=== PATIENT | male | born 1960 | race Caucasian/White ===

== ENCOUNTER 2022-11-15 13:48 | Emergency (ER) | payer OTHER, SELFPAY ==
[2022-11-15] VITALS (8 sets, daily range): BP systolic 122–159; BP diastolic 66–85; PULSE 60–73; RESP 15–22; TEMP 35.9; O2SAT 94–98; BMI 28.7
[2022-11-15] MEDS: ONDANSETRON 4 MG/2 ML INJ IV (14:00)
[2022-11-15] MEDS: KETOROLAC 30 MG/ML VIAL 15 MG IV (14:00)
[2022-11-15 14:27] LABS: Add Manual Diff / Slide Review NO; Basophils Absolute Auto 100 /uL (0-100); Basophils Percent Auto 1.1 % (0-2); Eosinophils Absolute Auto 100 /uL (0-450); Eosinophils Percent Auto 1.7 % (2-4); Hematocrit 42.1 % (41-53); Hemoglobin 14.1 g/dL (13.5-17.5); Lymphocytes Absolute Auto 3300 /uL (1100-4500); Lymphocytes Percent Auto 40.3 % (25-40); Mean Corpuscular HGB Conc 33.6 % (30-36); Mean Corpuscular Hemoglobin 30.4 PG (26-34); Mean Corpuscular Volume 90.3 fL (80-100); Monocytes Absolute Auto 1000 /uL (0-900); Monocytes Percent Auto 11.8 % (3-14); Neutrophils Absolute Auto 3700 /uL (1500-7000); Neutrophils Percent Auto 45.1 % (50-75); Platelet Count 205 X10^3/uL (150-400); Red Blood Cell Count 4.66 X10^6/uL (4.5-5.9); Red Cell Distribution Width 13.3 % (11.6-14.8); White Blood Cell Count 8.2 X10^3/uL (4.5-11.0)
[2022-11-15 14:34] LABS: Alanine Aminotransferase 31 IU/L (<50); Albumin 4.2 g/dL (3.5-5.0); Albumin Globulin Ratio 1.3 (1.0-2.8); Alkaline Phosphatase 60 U/L (38-126); Aspartate Aminotransferase 32 IU/L (17-59); Bilirubin Total 0.9 mg/dL (0.2-1.3); Blood Urea Nitrogen 17 mg/dL (9-20); Calcium 8.7 mg/dL (8.4-10.2); Carbon Dioxide 23 mmol/L (22-32); Chloride 101 mmol/L (98-107); Estimated Glomerular Filt Rate > 60 mL/min (>60); Globulin 3.3 g/dL (1.7-4.1); Glucose 196 mg/dL (80-110); HEMOLYSIS 22 (0-50); Lipase 101 U/L (23-300); Potassium 4.2 mmol/L (3.4-5.1); Sodium 137 mmol/L (137-145); Total Protein 7.5 g/dL (6.3-8.2)
--- NOTE | 2022-11-15 15:44 | DI.CT.S_ITS ---
PROCEDURE: CT KIDNEY URETER BLADDER (KUB) INDICATIONS: flank/back pain, urgency sensation TECHNIQUE: Axial sections were acquired from the lung bases to the pubic symphysis. Coronal and sagittal reformats were performed. For radiation dose reduction, the following was used: automated exposure control, adjustment of mA and/or kV according to patient size. COMPARISON: None. FINDINGS: Image quality: Excellent. Lung bases: Unremarkable. Heart: No significant findings. URINARY: Right Kidney: No stones. Mild hydronephrosis. Minimal perinephric stranding. Right Ureter: Mildly dilated down to the ureterovesical junction where a 3 mm stone obstructs the distal ureter. Left Kidney: No stones or hydronephrosis. Left Ureter: No hydroureter. Bladder: Normal wall thickness. No stones. ABDOMEN: Liver: Diffuse hepatic steatosis.. Gallbladder: Contracted, within normal limits Biliary ducts: Unremarkable. Pancreas: Unremarkable. Spleen: Unremarkable. Adrenal Glands: Unremarkable. Stomach and Bowel: Stomach, small bowel loops, and colon are unremarkable. Peritoneum: No abnormal intraperitoneal fluid. No free air. Ventral Wall: No hernia. Abdominal Nodes: No enlarged retroperitoneal or mesenteric lymph nodes. Vessels: Aorta and inferior vena cava are normal in size. PELVIS: Pelvic Organs: Unremarkable. Pelvic Nodes: Unremarkable. Miscellaneous: No inguinal hernias are seen. Bones: Lumbar degenerative change. No lytic or blastic bony lesions. No compression fractures. IMPRESSION: 1. A 3 mm stone obstructs the right ureter at the right ureterovesical junction resulting in mild right hydronephrosis. 2. Diffuse hepatic steatosis. 3. Small fat containing right inguinal hernia. Dictated by: Todd Bedoya M.D. on 11/15/2022 at 16:19 Approved by: Todd Bedoya M.D. on 11/15/2022 at 16:22
[2022-11-15] MEDS: SODIUM CHLORIDE 0.9% 1,000 ML 1000 ML IV (15:50)
[2022-11-15 17:07] LABS: Bacteria Urine None Seen; Culture Indicated Urine Cult Not Indicated; RBC Urine 1-5/HPF (0-5/HPF); Squamous Epithelial Cell Urine 0-1 /HPF (0-5/HPF); WBC Urine 0-1/HPF (0-5/HPF)
[2022-11-15] MEDS: TAMSULOSIN 0.4 MG CAPSULE PO (17:19)
[2022-11-15] MEDS: HYDROMORPHONE 0.5 MG INJ IV (17:19)
[2022-11-15] MEDS: HYDROCODONE/ACET 5/325 PREPACK 1 BOTTLE MISC (17:20)
[2022-11-15] MEDS: ONDANSETRON 4 MG ODT SL (17:20)
--- NOTE | 2022-11-15 17:28 | ED_ITS ---
HPI - Male Genitourinary <ROSALINDA Swanson - Last Filed: 11/15/22 17:33> General Chief complaint: Urogenital-Male Stated complaint: kidney stones Time Seen by Provider: 11/15/22 14:36 Source: patient Mode of arrival: Ambulatory History of Present Illness HPI Narrative: This is a 62-year-old male who presents to the emergency department with right- sided flank pain and urinary urgency. Denies fever, chills, states that his pain started today, denies vomiting but endorses nausea, denies any upper respiratory infection. Denies blood in his urine. Related Data Previous Rx's Medication Instructions Recorded hydrocodone 5 mg-acetaminophen 325 1 tab PO DAILY PRN pain #10 tabs 11/15/22 mg tablet ondansetron 4 mg disintegrating 4 mg PO Q8H PRN nausea and 11/15/22 tablet vomiting #10 tabs tamsulosin 0.4 mg capsule 0.4 mg PO DAILY 10 days #10 caps 11/15/22 Allergies Allergy/AdvReac Type Severity Reaction Status Date / Time No Known Drug Allergies Allergy Verified 11/15/22 13:52 Review of Systems <ROSALINDA Swanson - Last Filed: 11/15/22 17:33> Review of Systems ROS Unobtainable: All systems reviewed & are unremarkable except as noted in HPI and below Patient History <ROSALINDA Swanson - Last Filed: 11/15/22 17:33> Social History Smoking Status: Unknown if ever smoked Smoking Status: Unknown if ever smoked alcohol intake frequency: holidays/special occasions only Substance Use Type: does not use Exam <ROSALINDA Swanson - Last Filed: 11/15/22 17:33> Narrative Exam Narrative: Reviewed vitals signs and nursing notes. General: cooperative, comfortable, in no acute distress, well groomed HEENT: symmetrical facial expressions, moist mucous membranes Cardiovascular: regular rate and rhythm, no peripheral edema, warm extremities Respiratory: normal effort, able to speak in complete sentences, without w heezing, stridor, or abnormal breath sounds. No retractions or tachypnea. GI: abdomen soft, nontender to palpation, nondistended, without masses, rebound tenderness or exquisite tenderness with exam. MSK: moves all extremities, neurovascularly intact, no weakness, normal tone, right CVAT tenderness Skin: brisk capillary refill, without pallor or erythema Neuro: normal speech and cognition, A&O x3, ambulatory, clear speech Psych: mental status is grossly normal, congruent mood, normal affect, pleasant and cooperative Initial Vital Signs Initial Vital Signs: Vital Signs Temperature 96.7 F L 11/15/22 13:52 Pulse Rate 60 11/15/22 13:52 Respiratory Rate 20 11/15/22 13:52 Blood Pressure 122/80 11/15/22 13:52 Pulse Oximetry 94 11/15/22 13:52 Oxygen Delivery Method 11/15/22 13:52 <Sahra Caldwell DO - Last Filed: 11/21/22 19:10> Initial Vital Signs Initial Vital Signs: Vital Signs Temperature 96.7 F L 11/15/22 13:52 Pulse Rate 60 11/15/22 13:52 Respiratory Rate 20 11/15/22 13:52 Blood Pressure 122/80 11/15/22 13:52 Pulse Oximetry 94 11/15/22 13:52 Oxygen Delivery Method 11/15/22 13:52 Course <ROSALINDA Swanson - Last Filed: 11/15/22 17:33> Orders Ordered: Discontinued Medications Hydrocodone Bitart/Acetaminophen (Hydrocodone/Acet 5/325 Prepack) 1 bottle MISC SEEINSTR ONE Stop: 11/15/22 17:18 Last Admin: 11/15/22 17:20 Dose: 1 bottle Documented By: ROBSON Hydromorphone HCl (Hydromorphone 0.5 Mg Inj) 0.5 mg IV NOW ONE Stop: 11/15/22 17:07 Last Admin: 11/15/22 17:19 Dose: 0.5 mg Documented By: ROBSON Sodium Chloride (Normal Saline 0.9%) 1,000 mls @ 1,000 mls/hr IV BOLUS ONE Stop: 11/15/22 16:43 Last Infusion: 11/15/22 16:54 Dose: 0 mls/hr Documented By: Admin: 11/15/22 15:50 Dose: 1,000 mls/hr Documented By: ROBSON Ketorolac Tromethamine (Ketorolac 30 Mg/Ml Vial) 15 mg IV NOW ONE Stop: 11/15/22 13:57 Last Admin: 11/15/22 14:00 Dose: 15 mg Documented By: ROBSON(2) Ondansetron HCl (Ondansetron 4 Mg/2 Ml Inj) 4 mg IV NOW PRN PRN Reason: Nausea And Vomiting Last Admin: 11/15/22 14:00 Dose: 4 mg Documented By: ROBSON(2) Ondansetron HCl (Ondansetron 4 Mg Odt) 4 mg SL NOW ONE Stop: 11/15/22 17:19 Last Admin: 11/15/22 17:20 Dose: 4 mg Documented By: ROBSON Tamsulosin HCl (Tamsulosin 0.4 Mg Capsule) 0.4 mg PO NOW ONE Stop: 11/15/22 17:07 Last Admin: 11/15/22 17:19 Dose: 0.4 mg Documented By: ROBSON Vital Signs Vital signs: Vital Signs - 8 hr 11/15/22 13:52 11/15/22 15:07 11/15/22 15:10 Temperature 96.7 F L Pulse Rate 60 65 62 Respiratory Rate 20 15 Blood Pressure 122/80 Pulse Oximetry 94 96 96 Oxygen Delivery Method Room Air 11/15/22 15:10 11/15/22 15:30 11/15/22 15:30 Temperature Pulse Rate 63 Respiratory Rate 16 Blood Pressure 134/66 150/79 H Pulse Oximetry 96 Oxygen Delivery Method 11/15/22 16:00 11/15/22 16:00 11/15/22 16:32 Temperature Pulse Rate 63 64 Respiratory Rate 18 22 Blood Pressure 158/74 H Pulse Oximetry 97 98 Oxygen Delivery Method 11/15/22 16:34 11/15/22 16:34 11/15/22 17:00 Temperature Pulse Rate 66 Respiratory Rate 18 Blood Pressure 159/82 H 124/85 Pulse Oximetry 98 Oxygen Delivery Method 11/15/22 17:00 Temperature Pulse Rate 73 Respiratory Rate 17 Blood Pressure Pulse Oximetry 96 Oxygen Delivery Method <Sahra Caldwell DO - Last Filed: 11/21/22 19:10> Orders Ordered: Discontinued Medications Hydrocodone Bitart/Acetaminophen (Hydrocodone/Acet 5/325 Prepack) 1 bottle MISC SEEINSTR ONE Stop: 11/15/22 17:18 Last Admin: 11/15/22 17:20 Dose: 1 bottle Documented By: ROBSON Hydromorphone HCl (Hydromorphone 0.5 Mg Inj) 0.5 mg IV NOW ONE Stop: 11/15/22 17:07 Last Admin: 11/15/22 17:19 Dose: 0.5 mg Documented By: ROBSON Sodium Chloride (Normal Saline 0.9%) 1,000 mls @ 1,000 mls/hr IV BOLUS ONE Stop: 11/15/22 16:43 Last Infusion: 11/15/22 16:54 Dose: 0 mls/hr Documented By: Admin: 11/15/22 15:50 Dose: 1,000 mls/hr Documented By: ROBSON Ketorolac Tromethamine (Ketorolac 30 Mg/Ml Vial) 15 mg IV NOW ONE Stop: 11/15/22 13:57 Last Admin: 11/15/22 14:00 Dose: 15 mg Documented By: ROBSON(2) Ondansetron HCl (Ondansetron 4 Mg/2 Ml Inj) 4 mg IV NOW PRN PRN Reason: Nausea And Vomiting Last Admin: 11/15/22 14:00 Dose: 4 mg Documented By: ROBSON(2) Ondansetron HCl (Ondansetron 4 Mg Odt) 4 mg SL NOW ONE Stop: 11/15/22 17:19 Last Admin: 11/15/22 17:20 Dose: 4 mg Documented By: ROBSON Tamsulosin HCl (Tamsulosin 0.4 Mg Capsule) 0.4 mg PO NOW ONE Stop: 11/15/22 17:07 Last Admin: 11/15/22 17:19 Dose: 0.4 mg Documented By: ROBSON Vital Signs Vital signs: Vital Signs - 8 hr 11/15/22 13:52 11/15/22 15:07 11/15/22 15:10 Temperature 96.7 F L Pulse Rate 60 65 62 Respiratory Rate 20 15 Blood Pressure 122/80 Pulse Oximetry 94 96 96 Oxygen Delivery Method Room Air 11/15/22 15:10 11/15/22 15:30 11/15/22 15:30 Temperature Pulse Rate 63 Respiratory Rate 16 Blood Pressure 134/66 150/79 H Pulse Oximetry 96 Oxygen Delivery Method 11/15/22 16:00 11/15/22 16:00 11/15/22 16:32 Temperature Pulse Rate 63 64 Respiratory Rate 18 22 Blood Pressure 158/74 H Pulse Oximetry 97 98 Oxygen Delivery Method 11/15/22 16:34 11/15/22 16:34 11/15/22 17:00 Temperature Pulse Rate 66 Respiratory Rate 18 Blood Pressure 159/82 H 124/85 Pulse Oximetry 98 Oxygen Delivery Method 11/15/22 17:00 Temperature Pulse Rate 73 Respiratory Rate 17 Blood Pressure Pulse Oximetry 96 Oxygen Delivery Method MDM - Male Genitourinary <Anabel Bravo, [employer] - Last Filed: 11/15/22 17:33> Lab Data Result diagrams: 11/15/22 14:00 11/15/22 14:00 Labs: Lab Results 11/15/22 11/15/22 11/15/22 Range/Units 14:00 14:00 16:35 WBC 8.2 (4.5-11.0) X10^3/uL RBC 4.66 (4.5-5.9) X10^6/uL Hgb 14.1 (13.5-17.5) g/dL Hct 42.1 (41-53) % MCV 90.3 (80-100) fL MCH 30.4 (26-34) PG MCHC 33.6 (30-36) % RDW 13.3 (11.6-14.8) % Plt Count 205 (150-400) X10^3/uL Neut % (Auto) 45.1 L (50-75) % Lymph % (Auto) 40.3 H (25-40) % Traverse % (Auto) 11.8 (3-14) % Eos % (Auto) 1.7 L (2-4) % Baso % (Auto) 1.1 (0-2) % Neut # (Auto) 3700 (6798-5553) /uL Lymph # (Auto) 3300 (6446-3244) /uL [place] # (Auto) 1000 H (0-900) /uL Eos # (Auto) 100 (0-450) /uL Baso # (Auto) 100 (0-100) /uL Sodium 137 (137-145) mmol/L Potassium 4.2 (3.4-5.1) mmol/L Chloride 101 (98-107) mmol/L Carbon Dioxide 23 (22-32) mmol/L BUN 17 (9-20) mg/dL Creatinine 1.13 (0.66-1.25) mg/dL Estimated GFR > 60 (>60) mL/min BUN/Creatinine Ratio 15.0 (6-22) Glucose 196 H (80-110) mg/dL Calcium 8.7 (8.4-10.2) mg/dL Total Bilirubin 0.9 (0.2-1.3) mg/dL AST 32 (17-59) IU/L ALT 31 (<50) IU/L Alkaline Phosphatase 60 (38-126) U/L Total Protein 7.5 (6.3-8.2) g/dL Albumin 4.2 (3.5-5.0) g/dL Globulin 3.3 (1.7-4.1) g/dL Albumin/Globulin Ratio 1.3 (1.0-2.8) Lipase 101 (23-300) U/L Urine RBC 1-5/hpf (0-5/HPF) Urine WBC 0-1/hpf (0-5/HPF) Ur Squamous Epith Cells 0-1 /hpf (0-5/HPF) Urine Bacteria None seen (None) Ur Culture Indicated? Cult not indicated Urine Dip Bedside Urine Glucose 250 mg/dl Bedside Urine Bilirubin - Negative Bedside Urine Ketone +/- 5 Urine Specific [place] 1.015 Bedside Urine Occult Blood +++ Bedside Urine pH 7.0 Bedside Urine Protein + 30 Bedside Urine Urobilinogen +/- 1mg Bedside Urine Nitrite - Negative Bedside Urine Leukocytes - Negative Esterase Imaging Data CT scan - abdomen/pelvis: Radiologist's Impression: PROCEDURE:? CT KIDNEY URETER BLADDER (KUB) ? INDICATIONS:? flank/back pain, urgency sensation ? TECHNIQUE:? Axial sections were acquired from the lung bases to the pubic symphysis.? Coronal and sagittal reformats were performed.? For radiation dose reduction, the following was used: ?automated exposure control, adjustment of mA and/or kV according to patient size.? ? COMPARISON:? None. ? FINDINGS:? Image quality:? Excellent.? ? Lung bases:? Unremarkable.? ? Heart:? No significant findings. ? URINARY: Right Kidney: ? No stones.? Mild hydronephrosis.? Minimal perinephric stranding. Right Ureter:? Mildly dilated down to the ureterovesical junction where a 3 mm stone obstructs the distal ureter.? ? Left Kidney: ? No stones or hydronephrosis. Left Ureter:? No hydroureter.? ? Bladder:? Normal wall thickness. No stones. ? ? ? ABDOMEN: Liver:? Diffuse hepatic steatosis..? ? Gallbladder:? Contracted, within normal limits? ? Biliary ducts:? Unremarkable.? ? Pancreas:? Unremarkable.? ? Spleen:? Unremarkable.? ? Adrenal Glands:? Unremarkable.? ? ? Stomach and Bowel:? Stomach, small bowel loops, and colon are unremarkable.? Peritoneum:? No abnormal intraperitoneal fluid.? No free air.? ? Ventral Wall: ? No hernia.? Abdominal Nodes:? No enlarged retroperitoneal or mesenteric lymph nodes.? Vessels:? Aorta and inferior vena cava are normal in size.? ? PELVIS: Pelvic Organs:? Unremarkable.? ? Pelvic Nodes: Unremarkable. Miscellaneous: No inguinal hernias are seen. ? ? ? Bones:? Lumbar degenerative change.? No lytic or blastic bony lesions.? No compression fractures. ? ? IMPRESSION:? ? 1. A 3 mm stone obstructs the right ureter at the right ureterovesical junction resulting in mild right hydronephrosis. ? 2. Diffuse hepatic steatosis. ? 3. Small fat containing right inguinal hernia. ? Dictated by: Todd Bedoya M.D. on 11/15/2022 at 16:19 ? ? Approved by: Todd Bedoya M.D. on 11/15/2022 at 16:22 ? [facility] Narrative Medical decision making narrative: Patient with sudden onset pain without obvious provocation or palliation. US/CT KUB confirms RT UVJ 3 cm stone and mild hydronephrosis. Diffuse hepatic steatosis right inguinal hernia. Labs demonstrate no evidence of renal failure or sepsis, urine demonstrates no signs of infection and vital signs are stable. Patient improved with use of above stated therapies. Pain continues to be well controlled. Patient given extensive return precautions and questions have been answered to their apparent satisfaction. Patient's pain improved with hydromorphone, Toradol, IV fluids and tamsulosin. Patient given Urology contact information and will follow-up in the next 1-2 days. Given urine strainer, encouraged to stay hydrated, take ibuprofen 800 mg every 8 hours, use adjuvant codeine as needed for pain, follow-up with PCP. <Sahra Caldwell, - Last Filed: 11/21/22 19:10> Lab Data Labs: Lab Results 11/15/22 11/15/22 11/15/22 Range/Units 14:00 14:00 16:35 WBC 8.2 (4.5-11.0) X10^3/uL RBC 4.66 (4.5-5.9) X10^6/uL Hgb 14.1 (13.5-17.5) g/dL Hct 42.1 (41-53) % MCV 90.3 (80-100) fL MCH 30.4 (26-34) PG MCHC 33.6 (30-36) % RDW 13.3 (11.6-14.8) % Plt Count 205 (150-400) X10^3/uL Neut % (Auto) 45.1 L (50-75) % Lymph % (Auto) 40.3 H (25-40) % [place] % (Auto) 11.8 (3-14) % Eos % (Auto) 1.7 L (2-4) % Baso % (Auto) 1.1 (0-2) % Neut # (Auto) 3700 (1320-2438) /uL Lymph # (Auto) 3300 (0704-6982) /uL [place] # (Auto) 1000 H (0-900) /uL Eos # (Auto) 100 (0-450) /uL Baso # (Auto) 100 (0-100) /uL Sodium 137 (137-145) mmol/L Potassium 4.2 (3.4-5.1) mmol/L Chloride 101 (98-107) mmol/L Carbon Dioxide 23 (22-32) mmol/L BUN 17 (9-20) mg/dL Creatinine 1.13 (0.66-1.25) mg/dL Estimated GFR > 60 (>60) mL/min BUN/Creatinine Ratio 15.0 (6-22) Glucose 196 H (80-110) mg/dL Calcium 8.7 (8.4-10.2) mg/dL Total Bilirubin 0.9 (0.2-1.3) mg/dL AST 32 (17-59) IU/L ALT 31 (<50) IU/L Alkaline Phosphatase 60 (38-126) U/L Total Protein 7.5 (6.3-8.2) g/dL Albumin 4.2 (3.5-5.0) g/dL Globulin 3.3 (1.7-4.1) g/dL Albumin/Globulin Ratio 1.3 (1.0-2.8) Lipase 101 (23-300) U/L Urine RBC 1-5/hpf (0-5/HPF) Urine WBC 0-1/hpf (0-5/HPF) Ur Squamous Epith Cells 0-1 /hpf (0-5/HPF) Urine Bacteria None seen (None) Ur Culture Indicated? Cult not indicated Urine Dip Bedside Urine Glucose 250 mg/dl Bedside Urine Bilirubin - Negative Bedside Urine Ketone +/- 5 Urine Specific [place] 1.015 Bedside Urine Occult Blood +++ Bedside Urine pH 7.0 Bedside Urine Protein + 30 Bedside Urine Urobilinogen +/- 1mg Bedside Urine Nitrite - Negative Bedside Urine Leukocytes - Negative Esterase Discharge Plan Departure Patient Disposition: Home Clinical Impression: Calculus of ureterovesical junction (UVJ) Instructions: DI for Kidney Stones Activity Restrictions/Additional Instructions: *You have been diagnosed with a 3 mm stone in the right ureteralvesicular junction with mild swelling of your right kidney. Mild inflammation surrounding. Please take Flomax every 24 hours for the next 7 days until you pass your kidney stone. Please use the urine strainer to see if you passed her stone. Take 800 mg of ibuprofen every 8 hours with food and water plus Tylenol as needed for pain and hydrocodone as needed in addition to that. Please call and schedule a follow-up appointment on the next with Dr. Espinoza or Dr. Schmitz. Dr. Hawkins is out of [facility] but is on-call tonight if you have worsening pain, fever, any severe symptoms, please come back in and Dr. Hawkins is available tonight for you. Please use Zofran as needed for nausea, you should pass this stone in 24-48 hours. *What to do: *Please continue to take your regular medications as directed. [x ] New medication prescriptions sent to your pharmacy: [[facility] ] [ ] New medication written as a paper prescription [ ] No new medications given *Please follow up with your primary care provider in 2-3 days, call for an appointment. Let them know you were seen in the Emergency Department and that we asked that you be seen for follow-up. We will electronically transmit a record of today's note if your PCP is in our system *If you do not have a primary care provider please contact [phone] to establish care with one of the [facility] primary care providers. *Return to Emergency Department if you should have any new, worsening, or concerning symptoms, such as [fever greater than 101F, chills, worsening pain, persistent vomiting or other bothersome symptoms]. Prescriptions: New ondansetron 4 mg tablet,disintegrating 4 mg PO Q8H PRN (Reason: nausea and vomiting) Qty: 10 0RF tamsulosin 0.4 mg capsule 0.4 mg PO DAILY 10 Days Qty: 10 0RF hydrocodone-acetaminophen 5-325 mg tablet 1 tab PO DAILY PRN (Reason: pain) Qty: 10 0RF Referrals: Yaneth Benitez ARNP [Primary Care Provider] - Polo Schmitz MD [Physician] - Ty Espinoza MD [Physician] - Chip Hawkins MD [Non-Staff] - Visit Report Forms: Patient Portal/API <Sahra Caldwell DO - Last Filed: 11/21/22 19:10> Cosign ED Attending Coslizzieature Attestation: I was immediately available in the department for consultation. Documentation has been reviewed.
== END 2022-11-15 17:28 | disposition home or self-care (01) ==
PROVIDERS: Emergency Medicine; Emergency Provider Nurse Practitioner Critical Care Medicine; PCP Nurse Practitioner Occupational Health
DX: N20.1 Calculus of ureter (principal)
CPT/HCPCS: 36415; 51798; 74176; 80053; 81003; 81015; 83690; 85025; 96361; 96374; 96375; 99284; J1170; J1885; J2405